=== PATIENT | male | born 1965 | race African-American/Black ===

== ENCOUNTER 2017-08-26 11:23 | Inpatient (IN) | payer OTHER, SELFPAY ==
--- OUTSIDE RECORDS SUMMARY | 2017-08-26 11:24 | XMS REPORT | Clinical Summary ---
:1965 Author Organization [facility] Address [address] [place] [address] Care Team Providers Name Role Phone Asked, No Pcp Primary Care Provider Unavailable Allergies No Known Allergies Current Medications Prescription Sig. Disp. Refills Start Date End Date Status omeprazole (PriLOSEC) Take 1 capsule 30 capsule 0 08/02/2017 09/01/2017 Active 20 MG capsule (20 mg total) by mouth daily for 30 days. lactulose (CEPHULAC) Take 1 packet 6 packet 0 08/02/2017 08/08/2017 10 gram packet (10 g total) by mouth daily for 6 days. Active Problems Not on file Encounters Date Type Specialty Care Team Description 08/02/2017 Emergency Emergency Medicine Toni Blevins Constipation, unspecified MD Felicia constipation type (Primary Dx) after 08/25/2016 Social History Tobacco Use Types Packs/Day Years Used Date Heavy Tobacco Smoker 1 Smokeless Tobacco: Current User Alcohol Use Drinks/Week oz/Week Comments No Sex Assigned at Date Recorded Not on file Last Filed Vital Signs Vital Sign Reading Time Taken Blood Pressure 157/104 08/02/2017 8:00 AM [employer] Pulse 88 08/02/2017 8:00 AM [employer] Temperature 36.4 C (97.6 F) 08/02/2017 3:46 AM [employer] Respiratory Rate 20 08/02/2017 8:59 AM [employer] Oxygen Saturation 98% 08/02/2017 8:59 AM [employer] Inhaled Oxygen Concentration - - Weight - - Height 182.9 cm (6') 08/02/2017 3:46 AM [employer] Body Mass Index - - Plan of Treatment Health Maintenance Due Date Last Done Comments COLONOSCOPY 2014 INFLUENZA VACCINE 12/31/2016 Procedures Procedure Name Priority Date/Time Associated Diagnosis Comments ED REFERRAL TO [facility] Routine 08/02/2017 8:20 AM EPISCOPAL PHYSICIAN [employer] ORGANIZATION after 08/25/[address] Abdomen Pelvis W Contrast (08/02/2017 7:51 AM) Specimen Performing Laboratory [facility] [address] [place] [address] Narrative EXAMINATION:CT ABDOMEN PELVIS W CONTRAST CLINICAL HISTORY:abd pain bloating TECHNIQUE: Multiple axial images of the abdomen and pelvis were obtained following intravenous administration of iodinated contrast. Sagittal and coronal computerized reformatted images were also obtained. All CT images were acquired using low- dose technique with automated exposure control. COMPARISON: None. FINDINGS: Abdomen: 1.Small hiatal hernia. There are paraesophageal lymph nodes that are slightly enlarged at level the GE junction measuring up to 10 x 14 mm. Although the lymph nodes may be reactive in etiology correlation with endoscopy findings may be of benefit when clinically capable. There is mild circumferential wall thickening involving the distal esophagus. 2.Fatty infiltration liver. The spleen, pancreas, gallbladder, adrenal glands and kidneys appear normal. There is a 15 mm low-attenuation lesion in the right kidney most likely related to a cyst however incompletely characterized. If there is further clinical concern correlation with sonographic findings may be of benefit. 3.The abdominal aorta is of normal caliber. Due to timing of the contrast bolus assessment of the portal vein and SMV could not be readily made. 4.No evidence for free intraperitoneal air or fluid. There is a moderate amount of stool within the colon. Small bowel loops are of normal caliber. Pelvis: 1.The bladder is relatively decompressed. 2.A pelvic mass or fluid collection is not identified. 3.No pelvic lymphadenopathy. 4.Osseous structures are intact. IMPRESSION: 1.No acute abnormalities. There is a moderate amount of stool within the colon. No evidence to suggest bowel obstruction. 2.Mild circumferential wall thickening involving the distal esophagus which may relate to esophagitis. There are mildly prominent paraesophageal lymph nodes near the GE junction. If there is further clinical concern correlation with endoscopy findings may be of benefit when clinically capable. [facility]-[id number] Procedure Note Interface, Radiology Results Incoming - 08/02/2017 8:03 AM [employer] EXAMINATION: CT ABDOMEN PELVIS W CONTRAST CLINICAL HISTORY: abd pain bloating TECHNIQUE: Multiple axial images of the abdomen and pelvis were obtained following intravenous administration of iodinated contrast. Sagittal and coronal computerized reformatted images were also obtained. All CT images were acquired using low-dose technique with automated exposure control. COMPARISON: None. FINDINGS: Abdomen: 1. Small hiatal hernia. There are paraesophageal lymph nodes that are slightly enlarged at level the GE junction measuring up to 10 x 14 mm. Although the lymph nodes may be reactive in etiology correlation with endoscopy findings may be of benefit when clinically capable. There is mild circumferential wall thickening involving the distal esophagus. 2. Fatty infiltration liver. The spleen, pancreas, gallbladder, adrenal glands and kidneys appear normal. There is a 15 mm low-attenuation lesion in the right kidney most likely related to a cyst however incompletely characterized. If there is further clinical concern correlation with sonographic findings may be of benefit. 3. The abdominal aorta is of normal caliber. Due to timing of the contrast bolus assessment of the portal vein and SMV could not be readily made. 4. No evidence for free intraperitoneal air or fluid. There is a moderate amount of stool within the colon. Small bowel loops are of normal caliber. Pelvis: 1. The bladder is relatively decompressed. 2. A pelvic mass or fluid collection is not identified. 3. No pelvic lymphadenopathy. 4. Osseous structures are intact. IMPRESSION: 1. No acute abnormalities. There is a moderate amount of stool within the colon. No evidence to suggest bowel obstruction. 2. Mild circumferential wall thickening involving the distal esophagus which may relate to esophagitis. There are mildly prominent paraesophageal lymph nodes near the GE junction. If there is further clinical concern correlation with endoscopy findings may be of benefit when clinically capable. [facility]-[id number] Urine culture (08/02/2017 6:14 AM) Component Value Ref Range Urine culture SEE COMMENTComment: Bacteriuria screen negative. Specimen Performing Laboratory [facility] DEPARTMENT OF PATHOLOGY AND GENOMIC MEDICINE [address] [place] [id number] Urinalysis screen and microscopy, with reflex to culture (08/02/2017 6:10 AM) Component Value Ref Range Specimen site Clean catch Color, UA Yellow Appearance, UA Clear Specific gravity, UA 1.018 1.001 - 1.035 pH, UA 6.0 5.0 - 8.5 Protein, UA Negative Negative Glucose, UA Negative Negative Ketones, UA Negative Negative Bilirubin, UA Negative Negative Blood, UA Negative Negative Nitrite, UA Negative Negative Urobilinogen, UA 4.0 (A) <2.0 Leukocyte esterase, UA Negative Negative WBC, UA 2 (H) 0 - 1 /HPF RBC, UA 1 0 - 1 /HPF Bacteria, UA Few None seen Yeast, UA None seen Yeast with pseudohyphae, UA None seen Specimen Performing Laboratory Urine [facility] DEPARTMENT OF PATHOLOGY AND GENOMIC MEDICINE [address] [place] [id number] Urine drugs of abuse screen (08/02/2017 6:10 AM) Component Value Ref Range Amphetamine screen, urine Negative Barbiturate screen, urine Negative Benzodiazepine screen, urine Negative Cannabinoid screen, urine Negative Cocaine screen, urine Negative Methadone metabolite (EDDP), urine Negative Opiates screen, urine Positive (A) Oxycodone screen, urine Negative Phencyclidine screen, urine Negative Tricyclic screen, urine Negative Comment: Drug screen minimum concentration of detectability [id number] ng/mL Barbiturates 200 ng/mL Dsfmgnhaoijoixl440 ng/mL Ngeslll932 ng/mL Rerlrvknu819 ng/mL Hdszmxf242 ng/mL Inmuohibp448 ng/mL Phencyclidine 25 ng/mL Hnxdcsbwpstm97 ng/mL Appcppubsn3323 ng/mL Negative test results indicates presumptive evidence of lack of clinically significant drug concentration in this urine specimen. Positive test results are presumptive evidence of clinically significant drug concentration in this urine specimen. Testing performed for medical purposes only. Specimen Performing Laboratory Urine [facility] DEPARTMENT OF PATHOLOGY AND GENOMIC MEDICINE [address] [place] [id number] ECG ED Preliminary Interpretation - NOT AN ORDER (08/02/2017 6:08 AM) Wellington Blevins MD 08/02/20179:23 PM ECG ED Preliminary Interpretation - Not an Order Performed by: TONI BLEVINS Authorized by: TONI BLEVINS ECG reviewed by ED Physician in the absence of a ship boat or barge mate: yes Previous ECG: Previous ECG:Unavailable Interpretation: Interpretation: normal Rate: ECG rate:94 ECG rate assessment: normal Rhythm: Rhythm: sinus rhythm Ectopy: Ectopy: none QRS: QRS axis:Left QRS intervals:Normal Conduction: Conduction: normal ST segments: ST segments:Normal T waves: T waves: normal Other findings: Other findings: LVH Lactic acid level, SEPSIS - Now and repeat 2x every 3 hours (08/02/2017 5:32 AM ) Component Value Ref Range Lactic acid 1.9 0.5 - 2.2 mmol/L Specimen Performing Laboratory Plasma specimen [facility] DEPARTMENT OF PATHOLOGY AND GENOMIC MEDICINE [address] [place] [id number] Estimated GFR (08/02/2017 5:32 AM) Component Value Ref Range GFR Non Af Amer 88 mL/min/1.73 m2 GFR Af Amer >90 mL/min/1.73 m2 Comment: Chronic kidney disease: <60 mL/min/1.73m2 Kidney failure: <15 mL/min/1.73m2 The estimated GFR is calculated from the IDMS-traceable Modification of Diet in Renal Disease Equation. The accuracy of the calculation is poor when the creatinine is normal. Calculated values >90 mL/min/1.73m2 are not reported. This equation has not been validated in children (<18 years), women, the elderly (>70 years), or ethnic groups other than Caucasians and Americans. Specimen Performing Laboratory Plasma specimen [facility] DEPARTMENT OF PATHOLOGY AND GENOMIC MEDICINE [address] [place] [id number] Troponin (08/02/2017 5:32 AM)Only the most recent of2 resultswithin the time period is included. Component Value Ref Range Troponin <0.30 0.00 - 0.30 ng/mL Comment: 0.30 - 1.49 ng/mlMay indicate increased risk of acute coronary syndrome. >=1.5 ng/mlConsistent with acute myocardial infarction. The diagnostic value of a single normal or non-diagnostic result is questionable.Serial samples at 2-6 hour intervals are required to rule out acute myocardial injury. Specimen Performing Laboratory Plasma specimen [facility] DEPARTMENT OF PATHOLOGY AND GENOMIC MEDICINE [address] [place] [address] CBC with platelet and differential (08/02/2017 5:32 AM) Component Value Ref Range WBC 7.30 4.50 - 11.00 k/uL RBC 4.88 4.40 - 6.00 m/uL HGB 13.0 (L) 14.0 - 18.0 g/dL HCT 41.0 41.0 - 51.0 % MCV 84.0 82.0 - 100.0 fL MCH 26.6 (L) 27.0 - 34.0 pg MCHC 31.7 31.0 - 37.0 g/dL RDW - SD 42.1 37.0 - 55.0 fL MPV 10.6 8.8 - 13.2 fL Platelet count 274 150 - 400 k/uL Nucleated RBC 0.00 /100 WBC Neutrophils 66.2 39.0 - 69.0 % Lymphocytes 23.8 (L) 25.0 - 45.0 % Monocytes 6.7 0.0 - 10.0 % Eosinophils 2.2 0.0 - 5.0 % Basophils 0.8 0.0 - 1.0 % Immature granulocytes 0.3Comment: "Immature granulocytes" 0.0 - 1.0 % (promyelocytes, myelocytes, metamyelocytes) Specimen Performing Laboratory Blood [facility] DEPARTMENT OF PATHOLOGY AND GENOMIC MEDICINE [address] [place] [id number] B natriuretic peptide (08/02/2017 5:32 AM) Component Value Ref Range BNP 558 (H) 0 - 100 pg/mL Specimen Performing Laboratory Blood [facility] PATHOLOGY AND [address] [address] Lipase level (08/02/2017 5:32 AM) Component Value Ref Range Lipase 29 13 - 60 U/L Specimen Performing Laboratory Plasma specimen [facility] DEPARTMENT OF PATHOLOGY AND [address] [address] Comprehensive metabolic panel (08/02/2017 5:32 AM) Component Value Ref Range Sodium 136 135 - 148 mEq/L Potassium 3.8 3.5 - 5.0 mEq/L Chloride 98 98 - 112 mEq/L CO2 27 24 - 31 mEq/L Anion gap 11 7 - 15 mEq/L Comment: Starting from August , anion gap calculation no longer incorporates potassium. Please note the change. BUN 16 6 - 20 mg/dL Creatinine 0.9 0.7 - 1.2 mg/dL Glucose 227 (H) 65 - 99 mg/dL Calcium 9.3 8.3 - 10.2 mg/dL Protein 7.6 6.3 - 8.3 g/dL Comment: 4.6-7.0 g/dL 1 week 4.4-7.6 g/dL 7 months-1year5.1-7.3 g/dL 1-2 years5.6-7.5 g/dL >3 years6.0-8.0 g/dL 18-150 6.3-8.3 g/dL Albumin 3.2 (L) 3.5 - 5.0 g/dL A/G ratio 0.7 0.7 - 3.8 Alkaline phosphatase 109 40 - 129 U/L AST 23 10 - 50 U/L ALT 24 5 - 50 U/L Total bilirubin 0.7 0.0 - 1.2 mg/dL Specimen Performing Laboratory Plasma specimen [facility] DEPARTMENT OF PATHOLOGY AND GENOMIC MEDICINE [address] [place] [address] XR Chest 2 Vw (08/02/2017 4:14 AM) Specimen Performing Laboratory [facility] [address] [place] [address] Narrative Examination:XR CHEST 2 VW Clinical History:Chest Pain Comparison: None. Technique: PA and lateral views of the S was obtained. Findings: Cardiomegaly is noted. Mild vascular crowding or congestion is noted. Left transvenous pacer device is noted. No consolidation is seen. No pleural effusion is seen. No pneumothorax is seen. Impression: Cardiomegaly with mild vascular crowding or congestion. [facility]-[id number] Procedure Note Interface, Radiology Results Incoming - 08/02/2017 4:22 AM [employer] Examination: XR CHEST 2 VW Clinical History: Chest Pain Comparison: None. Technique: PA and lateral views of the S was obtained. Findings: Cardiomegaly is noted. Mild vascular crowding or congestion is noted. Left transvenous pacer device is noted. No consolidation is seen. No pleural effusion is seen. No pneumothorax is seen. Impression: Cardiomegaly with mild vascular crowding or congestion. [facility]-[id number] ECG 12 lead (08/02/2017 4:01 AM) Component Value Ref Range Ventricular rate 94 Atrial rate 94 SD interval 176 QRSD interval 90 QT interval 386 QTC interval 482 P axis 1 57 QRS axis 1 -15 T wave axis 80 EKG impression Normal sinus rhythm-Possible Left atrial enlargement-Cannot rule out Anterior infarct , age undetermined-Abnormal ECG-No previous ECGs available- Specimen Performing Laboratory [facility] [address] [place] [address] after 08/25/2016 Insurance Payer Benefit Plan / Group Subscriber ID Type Phone Address MEDICAID [id number] MEDICAID [id number] xxxxxxxx Medicaid [phone] [address]
--- NOTE | 2017-08-26 12:46 | RAD REPORT ---
EXAM DESCRIPTION: Sandra Single View08/26/2017 12:18 pm CLINICAL HISTORY: Chest pain COMPARISON: July 2017 FINDINGS: The lungs appear clear of acute infiltrate. Upper lobe vessels are prominent indicative o f pulmonary venous hypertension. The heart is mildly to moderately enlarged. Pacemaker leads are in place
[2017-08-26 13:31] LABS: Absolute Lymphocytes (CBC) 2.2 K/uL (0.7-4.9); Absolute Monocytes 0.5 K/uL (0.1-1.3); Absolute Neutrophil 4.3 K/uL (1.8-8.0); Basophils % 0.7 % (0-1.3); Eosinophils % 2.8 % (0-4.4); Hematocrit 40.9 % (39.6-49.0); Lymphocytes % 30.3 % (15.3-44.8); MCH 26.8 pg (27.0-35.0); MCV 82.9 fL (80-100); MPV 8.4 fL (7.6-11.3); Monocytes % 6.4 % (3.3-12.3); RBC Red Blood Cell Count 4.93 M/uL (4.33-5.43)
[2017-08-26 13:41] LABS: Bicarbonate 25 mEq/L (21-31); Glucose Level 323 mg/dL (65-120); Potassium 3.4 mEq/L (3.6-5.0); Sodium Level 133 mEq/L (135-145)
[2017-08-26 13:42] LABS: BUN Blood Urea Nitrogen 11 mg/dL (6-20); Glomerular Filtration Rate > 90 mL/min (=/>90); Magnesium 1.8 mg/dL (1.8-2.5)
[2017-08-26 13:46] LABS: Protime INR 1.18
[2017-08-26] MEDS ORDERED: HYDROCODONE/APAP 10/325 TAB ONE (14:03)
--- NOTE | 2017-08-26 14:11 | EDPHYS ---
Physician Documentation [facility] Name: Abby Harris Age: 51 yrs Sex: Male : 1965 Arrival Date: 08/26/2017 Time: 11:28 Bed 7 Private MD: ED Physician Usman Arredondo HPI: 08/26 12:41 This 51 yrs old Black Male presents to ER via Wheelchair with complaints of Chest Pain, rn defibrillator discharge. 12:41 The patient or guardian reports chest pain that is located primarily in the substernal rn area. Onset: 3 day(s) ago. The pain does not radiate. Severity of pain: At its worst the pain was mild in the emergency department the pain is unchanged. The patient has experienced similar episodes in the past. Reports ran out of all his medications 3 days ago, reports several discharges of defibrillator, no fever, + mild sob, states moved from [place], unable to get clinic appt. . Historical: - Allergies: 11:39 No Known Allergies; lk1 - PMHx: 11:39 CHF; Chronic pain; Diabetes - IDDM; Hypertension; lk1 11:40 Pacemaker; lk1 - PSHx: 11:39 None; lk1 - Immunization history:: Adult Immunizations up to date. - Social history:: Smoking status: Patient/guardian denies using tobacco. - Family history:: not pertinent. - Hospitalizations: : No recent hospitalization is reported. ROS: 12:41 Constitutional: Negative for fever, chills, and weight loss, Eyes: Negative for injury, rn pain, redness, and discharge, Neck: Negative for injury, pain, and swelling, Cardiovascular: Negative for palpitations Respiratory: Negative for cough, wheezing, and pleuritic chest pain, Abdomen/GI: Negative for abdominal pain, nausea, vomiting, diarrhea, and constipation, MS/Extremity: Negative for injury and deformity, Skin: Negative for injury, rash, and discoloration, Neuro: Negative for headache, weakness, numbness, tingling, and seizure. Exam: 12:41 Constitutional: This is a well developed, well nourished patient who is awake, alert, rn appears anxious Head/Face: Normocephalic, atraumatic. Eyes: Pupils equal round and reactive to light, extra-ocular motions intact. Lids and lashes normal. Conjunctiva and sclera are non-icteric and not injected. Cornea within normal limits. Periorbital areas with no swelling, redness, or edema. Neck: Trachea midline, no thyromegaly or masses palpated, and no cervical lymphadenopathy. Supple, full range of motion without nuchal rigidity, or vertebral point tenderness. No Meningismus. Cardiovascular: Regular rate and rhythm with a normal S1 and S2. No gallops, murmurs, or rubs. Normal PMI, no JVD. No pulse deficits. Respiratory: + mild tachypnea, diminished bibasilar breath sounds Abdomen/GI: Soft, non-tender, with normal bowel sounds. No distension or tympany. No guarding or rebound. No evidence of tenderness throughout. MS/ Extremity: Pulses equal, no cyanosis. Neurovascular intact. Full, normal range of motion. Equal circumference. + non-pitting edema bilateral lower ext Neuro: Awake and alert, GCS 15, oriented to person, place, time, and situation. + mild slurred speech and residual left sided weakness. Vital Signs: 11:40 BP 124 / 86; Pulse 95; Resp 20; Temp 97.8(TE); Pulse Ox 97% on R/A; Weight 136.53 kg lk1 (R); Height 6 ft. 0 in. (182.88 cm) (R); Pain 9/10; 12:40 BP 126 / 90; Pulse 92; Resp 19; Pulse Ox 98% on R/A; Pain 9/10; sg 13:40 BP 132 / 90; Pulse 90; Resp 20 S; Pulse Ox 97% on R/A; Pain 9/10; sg 15:22 BP 138 / 90; Pulse 92 MON; Resp 18 S; Pulse Ox 97% on R/A; Pain 6/10; sg 11:40 Body Mass Index 40.82 (136.53 kg, 182.88 cm) lk1 MDM: 11:45 Patient medically screened. rn 14:08 Differential diagnosis: acute myocardial infarction, anxiety, coronary artery disease rn congestive heart failure pleurisy, pneumonia, pneumothorax. Data reviewed: vital signs, nurses notes, lab test result(s), EKG, radiologic studies, plain films, and as a result, I will admit patient. Counseling: I had a detailed discussion with the patient and/or guardian regarding: the historical points, exam findings, and any diagnostic results supporting the discharge/admit diagnosis, lab results, radiology results, the need for further work-up and treatment in the hospital. Admission orders: after a detailed discussion of the patient's condition and case, the admit orders are written by me. ED course: Pt with clear cxr, + multiple defibrillator discharges in last few days, will admit for interrogation and elevated troponin which is likely due to CHF. . 08/26 11:59 Order name: Basic Metabolic Panel; Complete Time: 14: rn 08/26 11:59 Order name: BNP; Complete Time: 14: rn 08/26 11:59 Order name: CBC with Diff; Complete Time: 13:39 rn 08/26 11:59 Order name: Magnesium; Complete Time: 14: rn 08/26 11:59 Order name: PT-INR; Complete Time: 14: rn 08/26 11:59 Order name: Ptt, Activated; Complete Time: 14: 08/26 11:59 Order name: Troponin (emerg Dept Use Only); Complete Time: 14: rn 08/26 11:59 Order name: XRAY Chest (1 view); Complete Time: 12:48 rn 08/26 11:59 Order name: EKG; Complete Time: 12:00 rn 08/26 11:59 Order name: Cardiac monitoring; Complete Time: 13:22 rn 08/26 11:59 Order name: EKG - Nurse/Tech; Complete Time: 13: rn 08/26 14:12 Order name: Diet Heart Healthy; Complete Time: 14:13 iw 08/26 11:59 Order name: IV Saline Lock; Complete Time: 13: rn 08/26 11:59 Order name: Labs collected and sent; Complete Time: 13:08/26 11:59 Order name: O2 Per Protocol; Complete Time: 13:08/26 11:59 Order name: O2 Sat Monitoring; Complete Time: 13:22 rn Administered Medications: 13:50 Drug: Newton 10 mg-325 mg 1 tabs Route: PO; sg 14:20 Follow up: Response: No adverse reaction; Pain is decreased sg 15:00 Drug: Lasix 40 mg Route: IVP; Site: left hand; sg 15:38 Follow up: Response: No adverse reaction sg Disposition: 08/26/17 14:11 Hospitalization ordered by Floyd Alvarado for Inpatient Admission. Preliminary diagnosis are Chest pain, unspecified, Encounter for adjustment and management of automatic implantable cardiac defibrillator. - Bed requested for Telemetry/MedSurg (observation). - Status is Inpatient Admission. sg - Condition is Stable. - Problem is new. - Symptoms have improved. UTI on Admission? No Signatures: Dispatcher [employer] EDMS Trudy Gaines Steven, RN RN Usman Macias MD MD rn Kluge, Leah RN RN lk1
--- NOTE | 2017-08-26 14:11 | ER ---
Nurse's Notes [facility] Name: Abby Harris Age: 51 yrs Sex: Male : 1965 Arrival Date: 08/26/2017 Time: 11:28 Bed 7 Private MD: Diagnosis: Chest pain, unspecified;Encounter for adjustment and management of automatic implantable cardiac defibrillator Presentation: 08/26 11:36 Presenting complaint: Patient states: "My chest is hurting and my pacemaker keeps going lk1 off. I am tired of getting shocked. I am from [place] and I just moved here. I don't have a primary doctor and I am out medications. I was just here a month ago and got temporary prescriptions and need them refilled. I am concerned with this. I think it may be a build up from not having my Lasix.". Transition of care: patient was not received from another setting of care. Onset of symptoms is unknown. Care prior to arrival: None. 11:36 Method Of Arrival: Wheelchair lk1 11:36 Acuity: MANNY 3 lk1 Triage Assessment: 11:40 General: Appears in no apparent distress. Behavior is calm, cooperative, appropriate lk1 for age. Pain: Complains of pain in chest and left leg Pain currently is 9 out of 10 on a pain scale. Cardiovascular: Capillary refill is brisk Patient's skin is warm and dry. Historical: - Allergies: 11:39 No Known Allergies; lk1 - PMHx: 11:39 CHF; Chronic pain; Diabetes - IDDM; Hypertension; lk1 11:40 Pacemaker; lk1 - PSHx: 11:39 None; lk1 - Immunization history:: Adult Immunizations up to date. - Social history:: Smoking status: Patient/guardian denies using tobacco. - Family history:: not pertinent. - Hospitalizations: : No recent hospitalization is reported. Screenin:30 Abuse screen: Denies threats or abuse. Denies injuries from another. Nutritional sg screening: No deficits noted. Tuberculosis screening: No symptoms or risk factors identified. Never had TB. Fall Risk None identified. Assessment: 13:00 General: Appears in no apparent distress. comfortable, obese, well groomed, well sg developed, well nourished, Behavior is calm, cooperative, appropriate for age. Pain: Complains of pain in left leg and chest. Neuro: Level of Consciousness is awake, alert, obeys commands, Oriented to person, place, time, Post Office Markup Clerk are equal bilaterally Moves all extremities. Full function Gait is steady, Speech is normal, Facial symmetry appears normal. Cardiovascular: Heart tones S1 S2 present Capillary refill is brisk in bilateral fingers Patient's skin is warm and dry. Chest pain is described as mild, quality is sharp, is located in left anterior chest wall reports " feels like my difib is pinching me". Respiratory: Airway is patent Respiratory effort is even, unlabored, Respiratory pattern is regular, symmetrical. GI: Abdomen is round non-distended, obese, Reports normal bowel habits. : No signs and/or symptoms were reported regarding the genitourinary system. EENT: No signs and/or symptoms were reported regarding the EENT system. Derm: Skin is intact, is healthy with good turgor, Skin is dry, Skin is normal, Skin temperature is warm. Musculoskeletal: Circulation, motion, and sensation intact. Range of motion: intact in all extremities, Swelling absent Reports pain in left leg. 13:30 Reassessment: pt requesting pain medication, states he has been out of his medications iw X 3 days, normally takes Percocet, pt c/o pain in chest and hip pain, Dr. Arredondo notified, new orders given. 13:38 Reassessment: Patient appears in no apparent distress at this time. Patient and/or sg family updated on plan of care and expected duration. Pain level reassessed. Patient is alert, oriented x 3, equal unlabored respirations, skin warm/dry/pink. pt medicated as ordered Patient states symptoms have not improved. 14:30 Reassessment: Patient appears in no apparent distress at this time. Patient and/or sg family updated on plan of care and expected duration. Pain level reassessed. Patient is alert, oriented x 3, equal unlabored respirations, skin warm/dry/pink. pt updated on POC and need for admission, pt stated understanding, pt requesting a diet tray be ordered, notified of pt request, order received for HH diet to be ordered, awaiting delivery from dietary at this time, pt remains on monitors, bed in low and locked position, srx1, call light within reach, HOB elevated, no further questions at this time, will continue to monitor. 15:01 Reassessment: Patient appears in no apparent distress at this time. Patient is alert, sg oriented x 3, equal unlabored respirations, skin warm/dry/pink. pt given HH diet, pt tolerated well, no assistance needed at this time, will continue to monitor. 15:30 Reassessment: Patient appears in no apparent distress at this time. Patient and/or sg family updated on plan of care and expected duration. Pain level reassessed. Patient is alert, oriented x 3, equal unlabored respirations, skin warm/dry/pink. pt updated on room assignment, attempt to call report, Lacie WATSON unavailable for report at this time, awaiting a call back from receiving nurse, pt stated understanding Patient states symptoms have not improved. Vital Signs: 11:40 BP 124 / 86; Pulse 95; Resp 20; Temp 97.8(TE); Pulse Ox 97% on R/A; Weight 136.53 kg lk1 (R); Height 6 ft. 0 in. (182.88 cm) (R); Pain 9/10; 12:40 BP 126 / 90; Pulse 92; Resp 19; Pulse Ox 98% on R/A; Pain 9/10; sg 13:40 BP 132 / 90; Pulse 90; Resp 20 S; Pulse Ox 97% on R/A; Pain 9/10; sg 15:22 BP 138 / 90; Pulse 92 MON; Resp 18 S; Pulse Ox 97% on R/A; Pain 6/10; sg 11:40 Body Mass Index 40.82 (136.53 kg, 182.88 cm) lk1 ED Course: 11:28 Patient arrived in ED. rg4 11:39 Triage completed. lk1 11:42 Arm band placed on right wrist. lk1 11:45 Usman Arredondo MD is Attending Physician. rn 11:48 Eliud Elliott, SHIRLEY is Primary Nurse. sg 12:00 Patient has correct armband on for positive identification. radiation monitor on. Pulse sg ox on. NIBP on. 12:18 XRAY Chest (1 view) In Process Unspecified. EDMS 12:30 EKG done, by technical architect. reviewed by Usman Arredondo MD. tc 12:55 Missed attempt(s): 20 gauge in left antecubital area. Bleeding controlled, band aid sg applied, catheter tip intact. 13:00 Initial lab(s) drawn, by me, sent to lab. Inserted saline lock: 20 gauge in left hand, sg using aseptic technique. Blood collected. Patient maintains SpO2 saturation greater than 95% on room air. 14:10 Floyd Alvarado MD is Hospitalizing Provider. rn 16:10 No provider procedures requiring assistance completed. Patient admitted, IV remains in sg place. intact, No redness/swelling at site. Administered Medications: 13:50 Drug: Franklin 10 mg-325 mg 1 tabs Route: PO; sg 14:20 Follow up: Response: No adverse reaction; Pain is decreased sg 15:00 Drug: Lasix 40 mg Route: IVP; Site: left hand; sg 15:38 Follow up: Response: No adverse reaction sg Output: 16:10 Urine: 500ml (Voided); Total: 500ml. sg Outcome: 14:11 Decision to Hospitalize by Provider. rn 16:10 Admitted to Tele accompanied by tech, via wheelchair, room 208, with chart, Report sg called to SHIRLEY De Leon 16:10 Condition: stable 16:10 Instructed on the need for admit, safety practices, Demonstrated understanding of instructions. 16:20 Patient left the ED. sg Signatures: Dispatcher [employer] EDMS Eliud Elliott RN Lisa Guan RN Usman Burris MD MD rn Callis, Tiffany, regional tanker truck driver EKG [facility] Maggie Elizondo RN RN lk1 Noah, Jammie rg4
[2017-08-26] MEDS ORDERED: FUROSEMIDE 40 MG/4 ML VIAL ONE (15:16)
--- NOTE | 2017-08-26 16:26 | EKG ---
Test Date: 2017-08-26 Test Time: 12:09:10 Firearms Specialist: MASON MEASUREMENT RESULTS: Intervals: Rate: 90 [place]: 190 QRSD: 96 QT: 410 QTc: 501 [place]: P: 57 [place]: 190 QRS: 5 T: 95 INTERPRETIVE STATEMENTS: Sinus rhythm with frequent and consecutive premature ventricular complexes Possible Left atrial enlargement Cannot rule out Anterior infarct, age undetermined T wave abnormality, consider lateral ischemia Prolonged QT Abnormal ECG Compared to ECG 07/29/2017 21:40:57 Myocardial infarct finding now present Possible ischemia now present T-wave abnormality still present Electronically Signed On 08-26-17 16:24:34 CDT by Jason Olivas
--- NOTE | 2017-08-26 16:57 | P.HP ---
Certification for Inpatient Patient admitted to: Observation With expected LOS: <2 Midnights Patient will require the following post-hospital care: None Practitioner: I am a practitioner with admitting privileges, knowledge of patient current condition, hospital course, and medical plan of care. Services: Services provided to patient in accordance with Admission requirements found in Title 42 Section 412.3 of the Code of Federal Regulations Patient History Date of Service: 08/26/17 Reason for admission: [id number] History of Present Illness: 51-year-old gentleman with a history hypertension diabetes hyperlipidemia coronary artery disease congestive heart failure and severe cardiomyopathy status post of AICD placement who came to emergency room today because of palpitations and discharge from the defibrillator. The patient ran of his medicine for about a 1 week and he expressing more [id number] some mild chest pain as well as palpitations. The patient had a stress test last month was unremarkable for stress induced ischemia. Allergies No Known Allergies Allergy (Verified 07/30/17 02:12) Home Medications: Albuterol Sulfate [Albuterol Sulfate 0.083% Neb Soln] 2.5 mg NEB Q4HR PRN Atorvastatin Calcium [Lipitor] 20 mg PO BEDTIME 08/26/17 Carvedilol [Coreg] 12.5 mg PO BID 08/26/17 Cyanocobalamin [Vitamin B-12*] 2,500 mcg SL DAILY 08/26/17 Furosemide [Lasix] 80 mg PO BID 08/26/17 Hydrocodone Bit/Acetaminophen [Hydrocodon-Acetaminophn 10-325] 325 mg PO Q6H Insulin Detemir [Levemir Flextouch] 18 unit SQ DAILY 08/26/17 Insulin Lispro [Humalog Kwikpen U-100] 100 unit SQ WMP 08/26/17 Lisinopril/Hydrochlorothiazide [Lisinopril-Hctz 10-12.5 mg Tab] 10 mg PO DAILY 08/26/17 Metformin ER [Glucophage ER*] 500 mg PO BID 08/26/17 Nitroglycerin 0.4 mg SL PRN PRN 08/26/17 Potassium Chloride [Klor-Con 10] 10 meq PO BID 08/26/17 Valsartan 80 mg PO DAILY 08/26/17 - Past Medical/Surgical History Diabetic: No -: Congestive heart failure -: Diabetes -: Hypertension -: Coronary artery disease -: Chronic pain syndrome -: defibrillator-pacemaker - Social History Alcohol use: No CD- Drugs: No Review of Systems 10-point ROS is otherwise unremarkable Physical Examination - Vital Signs Temperature: 97.8 F Blood Pressure: 138/90 Pulse: 92 Respirations: 18 - Physical Exam General: Alert, In no apparent distress HEENT: Atraumatic, PERRLA, Mucous membr. moist/pink, EOMI, Sclerae nonicteric Neck: Supple, 2+ carotid pulse no bruit, No LAD, Without JVD or thyroid abnormality Respiratory: Clear to auscultation bilaterally, Normal air movement Cardiovascular: Regular rate/rhythm, Normal S1 S2 Gastrointestinal: Normal bowel sounds, No tenderness Musculoskeletal: No tenderness Integumentary: No rashes Neurological: Normal gait, Normal speech, Normal strength at 5/5 x4 extr, Normal tone, Normal affect Lymphatics: No axilla or inguinal lymphadenopathy - Studies Laboratory Data (last 24 hrs) 08/26/17 13:00: PT 14.0 H, INR 1.18, APTT 25.5 08/26/17 13:00: WBC 7.3, Hgb 13.2 L, Hct 40.9, Plt Count 277 08/26/17 13:00: B-Natriuretic Peptide 280 H 08/26/17 13:00: Sodium 133 L, Potassium 3.4 L, BUN 11, Creatinine 0.84, Glucose 323 H, Magnesium 1.8 Assessment and Plan - Problems (Diagnosis) (1) History of implantable cardiac defibrillator (ICD) Onset Date: 07/30/17 Current Visit: Yes Status: Acute (2) Chronic pain disorder Onset Date: 07/30/17 Current Visit: No Status: Acute (3) Congestive heart failure Onset Date: 07/30/17 Current Visit: No Status: Acute (4) Coronary artery disease Onset Date: 07/30/17 Current Visit: No Status: Acute (5) Diabetes type 2 with atherosclerosis of arteries of extremities Onset Date: 07/30/17 Current Visit: No Status: Acute - Plan --resume patient home medicine --consult Cardiology for defibrillator interrogation --sliding scale insulin coverage - Advance Directives Does patient have a Living Will: No Does patient have a Durable POA for Healthcare: No
[2017-08-26] MEDS ORDERED: NITROGLYCERIN 0.4 MG/TAB SL PRN (16:58)
[2017-08-26] MEDS ORDERED: INSULIN LISPRO 100 UNIT SQ SCH (17:00)
[2017-08-26] MEDS: ENOXAPARIN 40 MG/0.4 ML SQ SCH (17:24)
[2017-08-26] MEDS ORDERED: INSULIN LISPRO 100 UNIT/1 ML SQ PRN (17:31)
[2017-08-26] MEDS: HYDROCODONE/APAP 10/325 TAB PO SCH ×2 (17:46→23:48)
[2017-08-26] MEDS ORDERED: PNEUMOCOCCAL VACCINE 0.5 ML IMVAC ONE (18:00)
[2017-08-26] MEDS ORDERED: HOME MED 1 EA UNK (Furosemide [Lasix] 80 MG) PO SCH (21:00)
[2017-08-26] MEDS: POTASSIUM CL SA 10 MEQ TAB PO SCH (21:02)
[2017-08-26] MEDS: CARVEDILOL 12.5 MG TAB PO SCH (21:03)
[2017-08-26] MEDS: FUROSEMIDE 40 MG TABLET PO SCH (21:03)
[2017-08-26] MEDS: ATORVASTATIN 20 MG TAB PO SCH (21:03)
[2017-08-26] MEDS: INSULIN DETEMIR 100 UNIT/1 ML INSULIN SQ SCH (21:04)
[2017-08-26] MEDS: ALBUTEROL 2.5 MG/3 ML NEB SOL NEB PRN (22:59)
[2017-08-27] MEDS: ALBUTEROL 2.5 MG/3 ML NEB SOL NEB PRN ×2 (03:58→20:13)
[2017-08-27 05:40] LABS: Urine Appearance CLEAR; Urine Bilirubin NEGATIVE (NEG); Urine Blood NEGATIVE (NEG); Urine Color YELLOW; Urine Glucose 1+ (NEG); Urine Protein NEGATIVE (NEG)
[2017-08-27 05:42] LABS: Urine Microscopic Reflex NO UMIC
[2017-08-27] MEDS: HYDROCODONE/APAP 10/325 TAB PO SCH (06:35)
[2017-08-27] MEDS ORDERED: INSULIN DETEMIR 100 UNIT/1 ML INSULIN SQ SCH (09:00)
[2017-08-27] MEDS ORDERED: INSULIN DETEMIR 18 UNIT SQ SCH (09:00)
[2017-08-27] MEDS: VALSARTAN 80 MG TAB PO SCH (09:16)
[2017-08-27] MEDS: CARVEDILOL 12.5 MG TAB PO SCH ×2 (09:16→21:30)
[2017-08-27] MEDS: ENOXAPARIN 40 MG/0.4 ML SQ SCH (09:17)
[2017-08-27] MEDS: INSULIN DETEMIR 100 UNIT/1 ML INSULIN SQ SCH ×2 (09:17→21:32)
[2017-08-27] MEDS: FUROSEMIDE 40 MG TABLET PO SCH ×2 (09:17→21:31)
[2017-08-27] MEDS: POTASSIUM CL SA 10 MEQ TAB PO SCH ×2 (09:17→21:30)
[2017-08-27] MEDS: CYANOCOBALAMIN 1,000 MCG TAB SL SCH (09:18)
--- NOTE | 2017-08-27 10:13 | P.PN ---
Subjective Date of Service: 08/27/17 Primary Care Provider: Trina Chief Complaint: [id number] Subjective: Improving Patient has a history of cva 2-3 months ago, 3 CA's. He has been out of his medications for 3-4 days. He subsequently started having his defibrillator fired several times. He was admitted yesterday for his defibrillating firing. The patient did not have a PCP which is why he was out of his medications. Review of Systems 10-point ROS is otherwise unremarkable Physical Examination - Vital Signs Temperature: 97.3 F Blood Pressure: 111/82 Pulse: 97 Respirations: 20 Pulse Ox (%): 99 - Physical Exam General: Alert, In no apparent distress HEENT: Atraumatic, PERRLA, EOMI Neck: Supple, JVD not distended Respiratory: Clear to auscultation bilaterally, Normal air movement Cardiovascular: Regular rate/rhythm, Normal S1 S2 Gastrointestinal: Normal bowel sounds, No tenderness Musculoskeletal: No tenderness Integumentary: No rashes Neurological: Normal speech, Normal tone, Normal affect Lymphatics: No axilla or inguinal lymphadenopathy - Studies Laboratory Data (last 24 hrs) 08/26/17 13:00: PT 14.0 H, INR 1.18, APTT 25.5 08/26/17 13:00: WBC 7.3, Hgb 13.2 L, Hct 40.9, Plt Count 277 08/26/17 13:00: B-Natriuretic Peptide 280 H 08/26/17 13:00: Sodium 133 L, Potassium 3.4 L, BUN 11, Creatinine 0.84, Glucose 323 H, Magnesium 1.8 Assessment & Plan - Problems (Diagnosis) (1) History of implantable cardiac defibrillator (ICD) Onset Date: 07/30/17 Current Visit: Yes Status: Acute Plan: Most likely due to him being out of medications. Will Await interogation of the device. (2) Congestive heart failure Onset Date: 07/30/17 Current Visit: No Status: Acute Plan: There is a consult to Dr. Olivas Qualifiers: Heart failure type: systolic Heart failure chronicity: chronic Qualified Code(s): I50.22 - Chronic systolic (congestive) heart failure (3) Diabetes type 2 with atherosclerosis of arteries of extremities Onset Date: 07/30/17 Current Visit: No Status: Acute Plan: Will order labs. May benefit from victoza. Will need to arrange for out patient education (4) Chronic mid back pain Current Visit: Yes Status: Acute Plan: No history of injury. He has not had any treatment. Has been on Percocet 10/ 325mg po qid. will need to work with him as an out patient to wean him off and discuss weight loss and PT. Qualifiers: Back pain laterality: midline Qualified Code(s): M54.6 - Pain in thoracic spine; G89.29 - Other chronic pain; G89.29 - Other chronic pain Discharge Plan: Home Plan to discharge in: 24 Hours - Code Status/Comfort Care Code Status Assessed: No Code Status: Full Code Physician Review: Patient Assessed, Agree with Above Assessment and Plan Critical Care: No Time Spent Managing Pts Care (In Minutes): 35
--- NOTE | 2017-08-27 11:16 | ECHO ---
HEIGHT: 6 ft 0 in WEIGHT: 301 lb 0 oz DATE OF STUDY: 08/27/[address]: Roel Godoy MD 2-DIMENSIONAL: YES M.MODE: YES DOPPLER: YES COLOR FLOW: YES TDS: NO PORTABLE: NO DEFINITY: NO BUBBLE STUDY: NO DIAGNOSIS: CONGESTIVE HEART FAILURE CARDIAC HISTORY: CATHERIZATION: YES SURGERY: NO PROSTHETIC VALVE: NO PACEMAKER: YES MEASUREMENTS (cm) DIASTOLIC (NORMALS) SYSTOLIC (NORMALS) IVSd 1.1 (0.6-1.2) LA Diam 5.3 (1.9-4.0) LVEF 30-35% LVIDd 6.6 (3.5-5.7) LVIDs 5.4 (2.0-3.5) %FS 18% LVPWd 1.2 (0.6-1.2) Ao Diam 3.3 (2.0-3.7) 2 DIMENSIONAL ASSESSMENT: RIGHT ATRIUM: DILATED LEFT ATRIUM: DILATED RIGHT VENTRICLE: DILATED, PACEMAKER LEFT VENTRICLE: DILATED TRICUSPID VALVE: NORMAL MITRAL VALVE: NORMAL PULMONIC VALVE: NORMAL AORTIC VALVE: NORMAL PERICARDIAL EFFUSION: NONE AORTIC ROOT: NORMAL LEFT VENTRICULAR WALL MOTION: GLOBAL HYPOKINESIS. DOPPLER/COLOR FLOW: MILD MITRAL AND TRICUSPID REGURGITATION. ESTIMATED RIGHT VENTRICULAR SYSTOLIC PRESSURE 60mmHg. SEVERE PULMONARY HYPERTENSION. COMMENTS: DEPRESSED LEFT VENTRICULAR EJECTION FRACTION. FOUR CHAMBER DILATATION. PACEMAKER IN RIGHT VENTRICLE. MILD MITRAL AND TRICUSPID REGURGITATION. SEVERE PULMONARY HYPERTENSION. . TECHNOLOGIST: Arielle PETE
[2017-08-27] MEDS: Oxycodone HCl/Acetaminophen 1 TAB TAB PO SCH ×3 (13:00→21:30)
--- NOTE | 2017-08-27 13:55 | CON ---
Chief Complaint: Defibrillator discharges. History Of Present Illness: Mr. Harris roughly a year ago was in [place], having several heart att acks, required stents at least once maybe several times. He also had a defibrillator implant. That was all done in [place]. We have no records, and he does not even know what brand of defibrillator i t is. He moved to [place] and ran out of medicines, could not find anybody to see him and get his medi cines taken care of, so he ran out of his medicines and then started feeling ill. Defibrillator star ruth going off. At this point, we had interrogated the defibrillator. We have restarted his medicine s and while he is in the hospital, his defibrillator has not shocked him. His EKG shows sinus with P VCs, old anterior TN and T-wave abnormality. The patient's chest x-ray shows a pacemaker device left pectoral area. There was no heart failure or pulmonary edema. Home Medications: Have been valsartan, metformin, lisinopril, hydrochlorothiazide, potassium chlorid e, insulin, hydrocodone, furosemide, cyanocobalamin, carvedilol, atorvastatin, albuterol, and nitrogl ycerin. Allergies: NO ALLERGIES ARE KNOWN. HE DENIES TOBACCO USE AND ALCOHOL USE PRESENTLY. Physical Examination: Vital Signs: Six feet tall, 301 pounds. HEENT: Normal. Neck: There is no carotid bruit. Lungs: Clear. Heart: Laterally displaced, apical impulse, 2/6 holosystolic murmur. Abdomen: Soft. Extremities: Mild edema. Impression: I think we need to find out the brand of the defibrillator get it interrogated, re-initi ate therapy. I do not like the idea of giving him both the thiazide diuretic and a loop diuretic, so we should get rid of the hydrochlorothiazide. I do not like the idea of giving him both lisinopril and valsartan, so let us stop the lisinopril. Continue valsartan and do our best to re-establish [facility] care for him. We should do an echocardiogram to see if he would be a candidate for Entresto. Thank you very much for your kind referral of Mr. Harris. I will follow him with you. DEIDRE Voice ID: [id number] Report ID: [id number]
[2017-08-27] MEDS: ATORVASTATIN 20 MG TAB PO SCH (21:29)
[2017-08-28] MEDS: ALBUTEROL 2.5 MG/3 ML NEB SOL NEB PRN ×3 (01:10→20:23)
[2017-08-28 06:04] LABS: Absolute Lymphocytes (CBC) 2.5 K/uL (0.7-4.9); Absolute Monocytes 0.6 K/uL (0.1-1.3); Absolute Neutrophil 3.6 K/uL (1.8-8.0); Basophils % 1.4 % (0-1.3); Hematocrit 40.8 % (39.6-49.0); Lymphocytes % 34.9 % (15.3-44.8); MCV 82.9 fL (80-100); MPV 8.4 fL (7.6-11.3); Monocytes % 8.6 % (3.3-12.3); RBC Red Blood Cell Count 4.92 M/uL (4.33-5.43)
[2017-08-28 06:56] LABS: Potassium 4.1 mEq/L (3.6-5.0); Thyroid Stimulating Hormone 1.02 uIU/mL (0.34-5.60)
[2017-08-28] MEDS ORDERED: GLUCAGON 1 MG/VIAL IM PRN ×2 (08:49→13:10)
[2017-08-28] MEDS ORDERED: D50W 25 GM/50 ML SYRINGE IV PRN ×2 (08:49→13:10)
--- NOTE | 2017-08-28 08:57 | P.PN ---
Subjective Date of Service: 08/28/17 Primary Care Provider: Trina Chief Complaint: [id number] Had some shortness of breath last night Review of Systems 10-point ROS is otherwise unremarkable Respiratory: Shortness of Breath (resolved) Physical Examination - Vital Signs Temperature: 97.9 F Blood Pressure: 118/84 Pulse: 92 Respirations: 18 Pulse Ox (%): 94 - Physical Exam General: Alert, In no apparent distress HEENT: Atraumatic, PERRLA, EOMI Neck: Supple, JVD not distended Respiratory: Clear to auscultation bilaterally, Normal air movement Cardiovascular: Regular rate/rhythm, Normal S1 S2 Gastrointestinal: Normal bowel sounds, No tenderness Musculoskeletal: No tenderness Integumentary: No rashes Neurological: Normal speech, Normal tone, Normal affect Lymphatics: No axilla or inguinal lymphadenopathy Assessment And Plan - Current Problems (Diagnosis) (1) History of implantable cardiac defibrillator (ICD) Onset Date: 07/30/17 Current Visit: Yes Status: Acute Plan: [place] [employer] devices. Will await interogation. (2) Congestive heart failure Onset Date: 07/30/17 Current Visit: No Status: Acute Plan: There is a consult to Dr. Olivas. Patient is doing better will decrease his lasix to 40mg iv bid. Will see how his creatine is doing Qualifiers: Heart failure type: systolic Heart failure chronicity: chronic Qualified Code(s): I50.22 - Chronic systolic (congestive) heart failure (3) Diabetes type 2 with atherosclerosis of arteries of extremities Onset Date: 07/30/17 Current Visit: No Status: Acute Plan: Sugars are in the 300's. His creatine is good. Will start metformin and increase his levemir from 18 to 25units. May benefit from victoza. Will need to arrange for out patient education (4) Chronic mid back pain Onset Date: 08/27/17 Current Visit: Yes Status: Acute Plan: Patient is very concerned about getting his medications regularly. My concern is that he has been on percocets for a year and now has a dependence. No history of injury. Have had a 15min discussion with the patient. Presented that if he has been on them for a year. Will he be on percocet for 5 years, 10 years. Asked is it treatment if the patient has the same pain level and using the same amount of pain medications year after year. Hopefully this will help him start think of weaning off the medications. Qualifiers: Back pain laterality: midline Qualified Code(s): M54.6 - Pain in thoracic spine; G89.29 - Other chronic pain; G89.29 - Other chronic pain Discharge Plan: Home Plan to discharge in: 24 Hours - Code Status/Comfort Care Code Status Assessed: No Code Status: Full Code Physician Review: Patient Assessed, Agree with Above Assessment and Plan Critical Care: No Time Spent Managing PTS Care (In Minutes): 35
[2017-08-28 09:19] LABS: A1c Component 1.48 mg/dL; Hemoglobin A1c 12.3 % (4-6.0)
[2017-08-28] MEDS: FUROSEMIDE 40 MG TABLET PO SCH ×2 (09:37→22:26)
[2017-08-28] MEDS: ENOXAPARIN 40 MG/0.4 ML SQ SCH (09:37)
[2017-08-28] MEDS: VALSARTAN 80 MG TAB PO SCH (09:37)
[2017-08-28] MEDS: POTASSIUM CL SA 10 MEQ TAB PO SCH ×2 (09:37→22:26)
[2017-08-28] MEDS: CARVEDILOL 12.5 MG TAB PO SCH ×2 (09:37→22:25)
[2017-08-28] MEDS: Oxycodone HCl/Acetaminophen 1 TAB TAB PO SCH ×5 (09:38→23:45)
[2017-08-28] MEDS: CYANOCOBALAMIN 1,000 MCG TAB SL SCH (09:38)
--- NOTE | 2017-08-28 12:10 | PN ---
Date of Progress Note: 08/28/2017 Subjective: The patient was admitted by Dr. Mena and seen by Dr. Godoy for congestive heart failur e. Today, is breathing better. No chest pain. Oxygenating better, is in normal rhythm. He has an AICD. Echocardiogram showed severe pulmonary hypertension with ejection fraction of 30-35%. I think , he is a good candidate for Entresto. I think, we should start him on a 24/26 mg b.i.d. daily and f ollow his creatinine. If we do so, he needs to be off valsartan for 2 days. I will discuss the case further with Dr. Mena. THERESA/KAREN Voice ID: [id number] Report ID: [id number]
[2017-08-28] MEDS: INSULIN -REGULAR HUMAN 50 UNIT/0.5 ML ML SQ SCH ×3 (13:29→22:24)
[2017-08-28] MEDS: METFORMIN HCL 500 MG TAB PO SCH (16:31)
[2017-08-28] MEDS: ATORVASTATIN 20 MG TAB PO SCH (22:25)
[2017-08-28] MEDS: AMIODARONE HCL 200 MG TAB PO SCH (22:26)
[2017-08-28] MEDS ORDERED: Oxycodone HCl/Acetaminophen 1 TAB TAB PO PRN (23:20)
[2017-08-29] MEDS: Oxycodone HCl/Acetaminophen 1 TAB TAB PO SCH ×4 (03:40→23:14)
[2017-08-29 06:42] LABS: Absolute Lymphocytes (CBC) 2.5 K/uL (0.7-4.9); Absolute Monocytes 0.4 K/uL (0.1-1.3); Absolute Neutrophil 3.8 K/uL (1.8-8.0); Basophils % 1.1 % (0-1.3); Eosinophils % 4.2 % (0-4.4); Hematocrit 39.2 % (39.6-49.0); Lymphocytes % 35.2 % (15.3-44.8); MCH 26.9 pg (27.0-35.0); MCV 82.3 fL (80-100); Monocytes % 5.9 % (3.3-12.3); RBC Red Blood Cell Count 4.77 M/uL (4.33-5.43)
[2017-08-29 06:50] LABS: Potassium 3.8 mEq/L (3.6-5.0)
[2017-08-29] MEDS: ENOXAPARIN 40 MG/0.4 ML SQ SCH (08:32)
[2017-08-29] MEDS: INSULIN -REGULAR HUMAN 50 UNIT/0.5 ML ML SQ SCH ×4 (08:32→20:51)
[2017-08-29] MEDS: POTASSIUM CL SA 10 MEQ TAB PO SCH ×2 (08:33→20:35)
[2017-08-29] MEDS: INSULIN DETEMIR 100 UNIT/1 ML INSULIN SQ SCH (08:33)
[2017-08-29] MEDS: METFORMIN HCL 500 MG TAB PO SCH ×2 (08:33→16:35)
[2017-08-29] MEDS: CYANOCOBALAMIN 1,000 MCG TAB SL SCH (08:34)
[2017-08-29] MEDS: AMIODARONE HCL 200 MG TAB PO SCH ×2 (08:34→20:35)
[2017-08-29] MEDS: CARVEDILOL 12.5 MG TAB PO SCH ×2 (08:34→20:35)
[2017-08-29] MEDS: FUROSEMIDE 40 MG TABLET PO SCH ×2 (08:34→20:39)
--- NOTE | 2017-08-29 12:33 | P.PN ---
Subjective Date of Service: 08/29/17 Primary Care Provider: Trina Chief Complaint: [id number] no complaints Review of Systems 10-point ROS is otherwise unremarkable Physical Examination - Vital Signs Temperature: 98.1 F Blood Pressure: 114/73 Pulse: 74 Respirations: 18 Pulse Ox (%): 99 - Physical Exam General: Alert, In no apparent distress HEENT: Atraumatic, PERRLA, EOMI Neck: Supple, JVD not distended Respiratory: Clear to auscultation bilaterally, Normal air movement Cardiovascular: Regular rate/rhythm, Normal S1 S2 Gastrointestinal: Normal bowel sounds, No tenderness Musculoskeletal: No tenderness Integumentary: No rashes Neurological: Normal speech, Normal tone, Normal affect Lymphatics: No axilla or inguinal lymphadenopathy Assessment & Plan - Problems (Diagnosis) (1) History of implantable cardiac defibrillator (ICD) Onset Date: 07/30/17 Current Visit: Yes Status: Acute Plan: Started on amiodaron and edin by Dr. Olivas. Will keep him here on a monitor for a day. See if the patient stays stable. Possible discharge in the morning (2) Congestive heart failure Onset Date: 07/30/17 Current Visit: No Status: Acute Plan: There is a consult to Dr. Olivas. Patient is doing better will decrease his lasix to 40mg iv bid. Will see how his creatine is doing Qualifiers: Heart failure type: systolic Heart failure chronicity: chronic Qualified Code(s): I50.22 - Chronic systolic (congestive) heart failure (3) Diabetes type 2 with atherosclerosis of arteries of extremities Onset Date: 07/30/17 Current Visit: No Status: Acute Plan: Sugars are in the 300's. His creatine is good. Will start metformin and increase his levemir from 18 to 25units. May benefit from victoza. Will need to arrange for out patient education (4) Chronic mid back pain Onset Date: 08/27/17 Current Visit: Yes Status: Acute Plan: Patient is very concerned about getting his medications regularly. My concern is that he has been on percocets for a year and now has a dependence. No history of injury. Have had a 15min discussion with the patient. Presented that if he has been on them for a year. Will he be on percocet for 5 years, 10 years. Asked is it treatment if the patient has the same pain level and using the same amount of pain medications year after year. Hopefully this will help him start think of weaning off the medications. Qualifiers: Back pain laterality: midline Qualified Code(s): M54.6 - Pain in thoracic spine; G89.29 - Other chronic pain; G89.29 - Other chronic pain Discharge Plan: Home Plan to discharge in: 24 Hours - Code Status/Comfort Care Code Status Assessed: No Code Status: Full Code Physician Review: Patient Assessed, Agree with Above Assessment and Plan Critical Care: No Time Spent Managing Pts Care (In Minutes): 20
[2017-08-29] MEDS ORDERED: PROMETHAZINE 25 MG TABLET PO PRN (17:43)
[2017-08-29] MEDS: ATORVASTATIN 20 MG TAB PO SCH (20:35)
[2017-08-30] MEDS: ALBUTEROL 2.5 MG/3 ML NEB SOL NEB PRN ×2 (03:58→13:42)
[2017-08-30] MEDS: Oxycodone HCl/Acetaminophen 1 TAB TAB PO SCH ×2 (05:35→13:08)
[2017-08-30 07:03] LABS: Absolute Lymphocytes (CBC) 2.7 K/uL (0.7-4.9); Absolute Monocytes 0.7 K/uL (0.1-1.3); Absolute Neutrophil 3.8 K/uL (1.8-8.0); Eosinophils % 3.8 % (0-4.4); Hematocrit 38.4 % (39.6-49.0); Lymphocytes % 36.5 % (15.3-44.8); MCV 81.7 fL (80-100); MPV 8.8 fL (7.6-11.3); Monocytes % 8.7 % (3.3-12.3)
--- NOTE | 2017-08-30 07:10 | PN ---
Date of Progress Note: 08/29/2017 Subjective: The patient has been followed for congestive heart failure. We are going to start him o n Entresto, but we are waiting for the valsartan to be washed off. We can start the Entresto tomorro w. Continues to diurese well and is feeling well. He is on carvedilol and Lasix. No arrhythmia or hemodynamic compromise or symptoms reported. Hopefully, we will be able to send him home Friday on E ntresto, carvedilol, Lasix, aspirin, and he will see us as an outpatient. His defibrillator had been checked had showed multiple episodes of shocks for VT and VFib. None has been seen here. THERESA/KAREN Voice ID: [id number] Report ID: [id number]
[2017-08-30] MEDS: INSULIN -REGULAR HUMAN 50 UNIT/0.5 ML ML SQ SCH ×2 (07:30→13:08)
[2017-08-30] MEDS: METFORMIN HCL 500 MG TAB PO SCH (08:00)
[2017-08-30] MEDS: ENOXAPARIN 40 MG/0.4 ML SQ SCH (08:35)
[2017-08-30] MEDS: INSULIN DETEMIR 100 UNIT/1 ML INSULIN SQ SCH (08:35)
[2017-08-30] MEDS: POTASSIUM CL SA 10 MEQ TAB PO SCH (08:36)
[2017-08-30] MEDS: CARVEDILOL 12.5 MG TAB PO SCH (08:36)
[2017-08-30] MEDS: CYANOCOBALAMIN 1,000 MCG TAB SL SCH (08:36)
[2017-08-30] MEDS: FUROSEMIDE 40 MG TABLET PO SCH (08:37)
[2017-08-30] MEDS: AMIODARONE HCL 200 MG TAB PO SCH (08:37)
--- NOTE | 2017-08-30 12:31 | P.DS ---
Admission Date: 08/28/17 Discharge Date: 08/30/17 Primary Care Provider: Trina Disposition: ROUTINE DISCHARGE Reason for Admission: [id number] - Problems (1) History of implantable cardiac defibrillator (ICD) Onset Date: 07/30/17 Current Visit: Yes Status: Acute (2) Congestive heart failure Onset Date: 07/30/17 Current Visit: No Status: Acute Qualifiers: Heart failure type: systolic Heart failure chronicity: chronic Qualified Code(s): I50.22 - Chronic systolic (congestive) heart failure (3) Diabetes type 2 with atherosclerosis of arteries of extremities Onset Date: 07/30/17 Current Visit: No Status: Acute (4) Chronic mid back pain Onset Date: 08/27/17 Current Visit: Yes Status: Acute Qualifiers: Back pain laterality: midline Qualified Code(s): M54.6 - Pain in thoracic spine; G89.29 - Other chronic pain; G89.29 - Other chronic pain Brief History of Present Illness: Patient was admitted by the hospitalist for several shocks from his AICD. He had run out of his medications due to not having a PCP. Hospital Course: Device is a Grovo. It was interogated. he has been having numerous shocks and arrythmias. Was seen by Dr. Olivas. Started on edin and amiodarone. Kept an extra day. will need to follow up with me for control of his symptoms of chf and diabetes. He needs to be refered to Dr. Rene. He is on Percocet QID. Has no reason for this says he was started when he had his first CO and has been taking them ever since. He can't quantify his pain. Some days he is not sure where he hurts. Moves from one body part to another. Have explained this can worsen his heart disease. Will work on weaning him off the pills. Patient is doing well otherwise. Goes outside to enjoy the sunshine. Will discharge him home today Vital Signs/Physical Exam: Temp Pulse Resp BP Pulse Ox 97.5 F 75 16 104/78 100 08/30/17 08:00 08/30/17 08:00 08/30/17 08:00 08/30/17 08:00 08/30/17 08:00 General: Alert, In no apparent distress HEENT: Atraumatic, PERRLA, EOMI Neck: Supple, JVD not distended Respiratory: Clear to auscultation bilaterally, Normal air movement Cardiovascular: Regular rate/rhythm, Normal S1 S2 Gastrointestinal: Normal bowel sounds, No tenderness Musculoskeletal: No tenderness Integumentary: No rashes Neurological: Normal speech, Normal tone, Normal affect Lymphatics: No axilla or inguinal lymphadenopathy Laboratory Data at Discharge: WBC 7.5 K/uL (4.3-10.9) 08/30/17 06:19 Hgb 12.7 g/dL (13.6-17.9) L 08/30/17 06:19 Hct 38.4 % (39.6-49.0) L 08/30/17 06:19 Plt Count 238 K/uL (152-406) 08/30/17 06:19 PT 14.0 SECONDS (9.5-12.5) H 08/26/17 13:00 INR 1.18 08/26/17 13:00 APTT 25.5 SECONDS (24.3-36.9) 08/26/17 13:00 Sodium 133 mEq/L (135-145) L 08/29/17 06:00 Potassium 3.8 mEq/L (3.6-5.0) 08/29/17 06:00 BUN 19 mg/dL (6-20) 08/29/17 06:00 Creatinine 1.07 mg/dL (0.61-1.24) 08/29/17 06:00 Glucose 358 mg/dL (65-120) H 08/29/17 06:00 Magnesium 1.8 mg/dL (1.8-2.5) 08/26/17 13:00 B-Natriuretic Peptide 280 pg/ml (<=100) H 08/26/17 13:00 Home Medications: Albuterol Sulfate [Albuterol Sulfate 0.083% Neb Soln] 2.5 mg NEB Q4HR PRN Furosemide [Lasix] 80 mg PO BID 08/26/17 Hydrocodone Bit/Acetaminophen [Hydrocodon-Acetaminophn 10-325] 325 mg PO Q6H Insulin Detemir [Levemir Flextouch] 18 unit SQ DAILY 08/26/17 Insulin Lispro [Humalog Kwikpen U-100] 100 unit SQ WMP 08/26/17 Lisinopril/Hydrochlorothiazide [Lisinopril-Hctz 10-12.5 mg Tab] 10 mg PO DAILY 08/26/17 Potassium Chloride [Klor-Con 10] 10 meq PO BID 08/26/17 RX: Cyanocobalamin [Vitamin B-12*] 2,500 mcg SL DAILY 08/26/17 RX: Metformin ER [Glucophage ER*] 500 mg PO BID 08/26/17 RX: Nitroglycerin 0.4 mg SL PRN PRN 08/26/17 RX: Valsartan 80 mg PO DAILY 08/26/17 Sacubitril/Valsartan [Entresto 24 mg-26 mg Tablet] 1 tab PO BID #60 tab Codeine/APAP [Tylenol W/Codeine #3 tab] 1 tab PO Q6HP PRN #30 tab 08/30/17 RX: Amiodarone HCl [Cordarone*] 400 mg PO BID #180 tab 08/30/17 RX: Atorvastatin Calcium [Lipitor*] 20 mg PO BEDTIME #90 tab 08/30/17 RX: Carvedilol [Coreg] 12.5 mg PO BID #180 tablet 08/30/17 RX: Furosemide [Lasix*] 40 mg PO BID #180 tab 08/30/17 RX: Insulin Detemir [Levemir*] 25 units SQ DAILY WITH BREAKFAST 30 Days #1 ml RX: Metformin HCl [Glucophage*] 500 mg PO BIDWM #180 tab 08/30/17 New Medications: RX: Amiodarone HCl [Cordarone*] 400 mg PO BID #180 tab RX: Atorvastatin Calcium [Lipitor*] 20 mg PO BEDTIME #90 tab RX: Carvedilol [Coreg] 12.5 mg PO BID #180 tablet Codeine/APAP [Tylenol W/Codeine #3 tab] 1 tab PO Q6HP PRN #30 tab PRN Reason: Pain RX: Furosemide [Lasix*] 40 mg PO BID #180 tab RX: Insulin Detemir [Levemir*] 25 units SQ DAILY WITH BREAKFAST 30 Days #1 ml RX: Metformin HCl [Glucophage*] 500 mg PO BIDWM #180 tab Sacubitril/Valsartan [Entresto 24 mg-26 mg Tablet] 1 tab PO BID #60 tab Diet: ADA Activity: Ad toi Followup: Jason Olivas MD [ACTIVE - CAN ADMIT] - 1-2 Weeks Vincenzo Mena MD [ACTIVE - CAN ADMIT] - 2-3 Days
[2017-08-30] MEDS ORDERED: SACUBITRIL/VALSARTAN 24/26 MG TAB PO SCH (21:00)
== END 2017-08-30 14:28 | disposition home or self-care (01) | DRG 309 ==
LOC: ER 11:23 → ERHOLD 14:12 → 2ND 16:01 → OBSVTOIN 08-28 14:16
PROVIDERS: ADMIT Internal Medicine; ATTEND Internal Medicine
DX: I49.9 Cardiac arrhythmia, unspecified (principal); I50.22 Chronic systolic (congestive) heart failure; I10 Essential (primary) hypertension; E11.8 Type 2 diabetes mellitus with unspecified complications; E78.5 Hyperlipidemia, unspecified; M54.6 Pain in thoracic spine; I25.10 Atherosclerotic heart disease of native coronary artery without angina pectoris; G89.4 Chronic pain syndrome; Z95.810 Presence of automatic (implantable) cardiac defibrillator
CPT/HCPCS: 36415; 71045; 80048; 81003; 82962; 83036; 83735; 83880; 84443; 84484; 85025; 85610; 85730; 93005; 93306; 94640; 96374; 99285; G0378; J1650